=== PATIENT | female | born 1970 | race Caucasian/White ===

== ENCOUNTER → 2017-04-17 | Outpatient (CLI) | payer OTHER ==
--- NOTE | 2017-04-18 10:32 | MM ---
Reason for exam: clinical finding. Last mammogram was performed 6 years and 10 months ago. History: Family history of breast cancer in mother at age 65 and breast cancer in aunt. Indicated problem(s): lump or thickening and pain in the left breast. Physical Findings: Nurse Summary: A 1cm nodule in the left breast at 12 o'clock (nurse mj). MG Diagnostic Mammo w CAD MARY Bilateral CC and MLO view(s) were taken. Prior study comparison: June 29, 2010, bilateral digital screening mammogram. The breast tissue is heterogeneously dense. This may lower the sensitivity of mammography. Focal asymmetry at site of palpable abnormality. These results were verbally communicated with the patient and result sheet given to the patient on 04/17/17. ASSESSMENT: Incomplete: need additional imaging evaluation, BI-RAD 0 RECOMMENDATION: Ultrasound of the left breast.
--- NOTE | 2017-04-18 10:37 | USB ---
Reason for exam: clinical finding. History: Family history of breast cancer in mother at age 65 and breast cancer in aunt. US Breast Limited LT Left breast ultrasound demonstrates a 5 x 3 x 4mm oval,cystic at palpable lesion at 12 o'clock, a 6 x 4 x 4mm oval, cystic lesion at 1 o'clock and a debris filled duct at posterior nipple. These results were verbally communicated with the patient and result sheet given to the patient on 04/17/17. ASSESSMENT: Probably benign, BI-RAD 3 RECOMMENDATION: Ultrasound of the left breast in 6 months. Manage patient on a clinical basis.
== END | disposition home or self-care (01) ==
LOC: RADMAMWWP 08:51
PROVIDERS: ATTEND Family Medicine
DX: N64.4 Mastodynia (principal); R92.8 Other abnormal and inconclusive findings on diagnostic imaging of breast
CPT/HCPCS: 76642; G0204

== ENCOUNTER 2017-09-12 12:05 | Emergency (ER) | payer OTHER ==
[2017-09-12 12:39] VITALS: TEMP 97.6
--- NOTE | 2017-09-12 14:16 | ED ---
Neck Injury/Pain HPI - General Chief Complaint: Neck Pain/Injury Stated Complaint: Fall-Neck Pain Time Seen by Provider: 09/12/17 13:31 Mode of arrival: ambulatory - History of Present Illness Initial Comments: 46-year-old male presented for evaluation of neck pain. She states that 2 days ago she had a mechanical fall while walking and landed prone hitting her chin on the ground. She denies any loss of consciousness but states that she was seen at [facility] where x-rays revealed no definitive fracture however the studies were poor and revealed possible abnormalities of the skeletal structures. A CT was not performed. She states that since then she has developed some paresthesias of the left arm and continues to have neck pain. She denies any lightheadedness, dizziness, change in vision, or weakness but she says state that holding her arms up for extended periods of time is difficult. There is no low back pain, saddle anesthesia, lower extremity weakness, or gait irregularities/ataxia. - Related Data Home Medications Medication Instructions Recorded Confirmed Albuterol Inhaler [Ventolin Hfa 1 - 2 puff INHALATION RT-Q6H PRN 09/12/17 Inhaler] Beclomethasone Dip 80 Mcg/Puff 2 puff INHALATION RT-BID 09/12/17 09/12/17 [Qvar 80 mcg] Cetirizine HCl [Zyrtec] 10 mg PO DAILY 09/12/17 09/12/17 Diazepam [Valium] 5 mg PO Q6H PRN 09/12/17 09/12/17 Hydrocodone/Acetaminophen [Magnolia 1 tab PO Q6HR PRN 09/12/17 09/12/17 5-325] Ibuprofen [Motrin] 800 mg PO Q6H PRN 09/12/17 09/12/17 Previous Rx's Medication Instructions Recorded Diazepam [Valium] 5 mg PO BID #10 tab 09/12/17 Allergies Allergy/AdvReac Type Severity Reaction Status Date / Time Sulfa (Sulfonamide Allergy Rash/Hives Verified 09/12/17 14:14 Antibiotics) Review of Systems ROS Statement: Those systems with pertinent positive or pertinent negative responses have been documented in the HPI. ROS Other: All systems not noted in ROS Statement are negative. Constitutional: Denies: fever, chills Eyes: Denies: eye pain, eye discharge, vision change ENT: Denies: throat pain, hearing loss Respiratory: Denies: cough, dyspnea Cardiovascular: Denies: chest pain, palpitations Endocrine: Denies: fatigue, heat or cold intolerance Gastrointestinal: Denies: abdominal pain, nausea, vomiting Genitourinary: Denies: urgency, dysuria Musculoskeletal: Reports: other (positive neck pain with radiation to the left shoulder). Denies: back pain, arthralgia, myalgia Skin: Denies: rash, lesions Neurological: Reports: paresthesias (left arm). Denies: headache, weakness, numbness, confusion, abnormal gait Psychiatric: Denies: anxiety, depression Hematological/Lymphatic: Denies: easy bleeding, easy bruising Past Medical History Past Medical History: COPD History of Any Multi-Drug Resistant Organisms: None Reported Past Surgical History: Appendectomy, Cholecystectomy, Tubal Ligation Past Psychological History: No Psychological Hx Reported Smoking Status: Current every day smoker Past Alcohol Use History: None Reported Past Drug Use History: None Reported General Exam General appearance: alert, in no apparent distress Head exam: Present: atraumatic, normocephalic, normal inspection Eye exam: Present: normal appearance, PERRL, EOMI. Absent: scleral icterus, conjunctival injection, periorbital swelling ENT exam: Present: normal exam, mucous membranes moist Neck exam: Present: tenderness, full ROM. Absent: normal inspection, meningismus, lymphadenopathy Respiratory exam: Present: normal lung sounds bilaterally. Absent: respiratory distress, wheezes, rales, rhonchi, stridor Cardiovascular Exam: Present: regular rate, normal rhythm, normal heart sounds. Absent: systolic murmur, diastolic murmur, rubs, gallop, clicks GI/Abdominal exam: Present: soft, normal bowel sounds. Absent: distended, tenderness, guarding, rebound, rigid Rectal exam: Present: deferred Extremities exam: Present: normal inspection, full ROM, normal capillary refill. Absent: tenderness, pedal edema, joint swelling, calf tenderness Back exam: Present: normal inspection Neurological exam: Present: alert, oriented X3, CN II-XII intact Psychiatric exam: Present: normal affect, normal mood Skin exam: Present: warm, dry, intact, normal color. Absent: rash Course Vital Signs 09/12/17 09/12/17 12:35 15:01 Temperature 97.6 F Pulse Rate 98 90 Respiratory 20 18 Rate Blood Pressure 126/95 127/59 O2 Sat by Pulse 99 98 Oximetry Medical Decision Making - Medical Decision Making 46-year-old female presented for evaluation of neck pain with paresthesias, left arm for the last 2 days since a fall from standing. On physical examination her cranial nerves II through XII are intact without focal neurologic deficit. There is tenderness to midline cervical spine over there is no tenderness to the back. There are no other injuries. Her story is concerning for occult fracture and will obtain CT head and neck. Lab work is not indicated at this time. Pain control offered but refused. CT head and neck showed no acute ICH or cervical fractures. The patient was reevaluated and stated improvement in her symptoms. She is informed of all results and through shared decision making it was determined that she be discharged with instructions to follow-up with primary care physician but to return to this facility if her symptoms should worsen or persist. The patient acknowledged an understanding of all information provided and agreed with this plan of care. Disposition Clinical Impression: Cervical pain (neck) Disposition: HOME SELF-CARE Condition: Stable Instructions: Cervical Sprain (ED) Additional Instructions: Please use medication as discussed. Please follow up with family doctor if symptoms have not improved over the next two days. Please return to the emergency room if your symptoms increase or worsen or for any other concerns. Prescriptions: Diazepam [Valium] 5 mg PO BID #10 tab Referrals: Ele Hernandez DO [Primary Care Provider] - 1-2 days Time of Disposition: 15:00
--- NOTE | 2017-09-12 14:42 | CT ---
EXAMINATION TYPE: CT brain von [facility] con DATE OF EXAM: 09/12/2017 COMPARISON: NONE HISTORY: Patient fell today and hit chin. Patient denies head complaints at time of study. Patient complains of neck pain and left shoulder numbness. CT DLP: 1657 mGycm, Automated exposure control for dose reduction was used. CONTRAST: None CT of the brain is performed utilizing 3 mm thick sections through the posterior fossa and 3 mm thick sections through the remaining calvarium. Study is performed within 24 hours of arrival to the hospital. No abnormal hyperdensity is present to suggest an acute intracranial hemorrhage. No mass lesion is evident. No acute infarcts are evident. Ventricles and sulci are appropriate for the patient age. Paranasal sinuses and mastoid air cells within the [id number] are clear. IMPRESSIONS: 1. Normal CT brain. CT cervical spine. COMPARISON: None CT of the cervical spine is performed in the axial plane at 2 mm thick sections. Reconstructed image s in the coronal, and sagittal plane are reviewed on the computer. No acute fractures are evident. There is straightening of the cervical spine in the lateral projection. Some minimal kyphosis centere d at C5 may be present. Disc heights are preserved. Vertebral body heights are preserved. No spinal canal stenosis is evident. Facet hypertrophy is present C4-5 on the right with some mild foraminal narrowing. IMPRESSIONS: 1. Straightening of the cervical spine with minimal kyphosis at C5. 2. Mild foraminal narrowing C4-5 on the right. 3. No acute osseous abnormality cervical spine
[2017-09-12 15:02] VITALS: BP 127/59; PULSE 90; RESP 18
== END 2017-09-12 15:20 | disposition home or self-care (01) ==
LOC: EC 12:05
DX: M54.2 Cervicalgia (principal); R20.2 Paresthesia of skin; J44.9 Chronic obstructive pulmonary disease, unspecified; F17.200 Nicotine dependence, unspecified, uncomplicated; Z79.52 Long term (current) use of systemic steroids; Z79.899 Other long term (current) drug therapy; Z88.2 Allergy status to sulfonamides; W19.XXXA Unspecified fall, initial encounter; Y93.01 Activity, walking, marching and hiking
CPT/HCPCS: 70450; 72125; 99283